=== PATIENT | female | born 1970 | race Caucasian/White ===

== ENCOUNTER → 2023-10-27 14:09 | Outpatient (REF) | payer BC, SELFPAY | LOC: RAD 14:09 | PROVIDERS: ATTENDING PHYSICIAN Family Medicine | DX: R05.3 Chronic cough (principal); F41.9 Anxiety disorder, unspecified; J30.9 Allergic rhinitis, unspecified; R09.81 Nasal congestion | CPT/HCPCS: 71046 ==

== ENCOUNTER → 2024-05-12 13:07 | Outpatient (REF) | payer BC, SELFPAY | LOC: HWRAD 13:07 | PROVIDERS: ATTENDING PHYSICIAN Family Medicine | DX: M79.672 Pain in left foot (principal); M79.675 Pain in left toe(s); I73.00 Raynaud's syndrome without gangrene | CPT/HCPCS: 73630 ==

== ENCOUNTER → 2024-07-29 07:25 | Outpatient (REF) | payer BC, SELFPAY | LOC: RCS 07:25 | PROVIDERS: ATTENDING PHYSICIAN Internal Medicine Cardiovascular Disease; FAMILY PHYSICIAN Family Medicine | DX: R06.02 Shortness of breath (principal) | CPT/HCPCS: 93306 ==

== ENCOUNTER → 2024-08-05 06:54 | Outpatient (REF) | payer BC, SELFPAY | LOC: RAD 06:54 | PROVIDERS: ATTENDING PHYSICIAN Internal Medicine Cardiovascular Disease; FAMILY PHYSICIAN Family Medicine | DX: I73.00 Raynaud's syndrome without gangrene (principal) | CPT/HCPCS: 93922; 93925 ==

== ENCOUNTER 2024-11-24 23:41 | Emergency (ER) | payer BC, SELFPAY ==
[2024-11-24 23:49] VITALS: BP 119/73
[2024-11-25 00:26] VITALS: BMI 21.2
[2024-11-25 00:29] VITALS: BP 111/63
[2024-11-25 00:58] LABS: HCG, Serum Qualitative Screen Negative
[2024-11-25] MEDS: NSS 1000 IV (01:00)
[2024-11-25 01:01] LABS: Urine Character Cloudy (Clear)
[2024-11-25 01:04] VITALS: BP 111/66
[2024-11-25 01:10] LABS: ALT (SGPT) 18 U/L (0-35); AST (SGOT) 21 U/L (14-36); Albumin 4.5 g/dl (3.5-5.0); Alkaline Phosphatase 77 U/L (38-126); Blood Urea Nitrogen 14 mg/dl (7-17); Calcium 9.1 mg/dl (8.4-10.2); Carbon Dioxide 28 mmol/L (22-30); Chloride 103 mmol/L (98-107); Estimated Creatinine Clearance 82 ml/min; Glucose 96 mg/dl (70-99); Potassium 3.9 mmol/L (3.5-5.1); Sodium 137 mmol/L (135-145); Total Protein 7.5 g/dl (6.3-8.2); eGFR > 60.00
[2024-11-25 01:16] LABS: Hematocrit 39.7 % (37.0-47.0); Hemoglobin 13.0 g/dL (12.0-16.0); Mean Corp Hgb Conc. 32.7 g/dL (33.0-37.0); Mean Corpuscular Volume 94.7 fL (81.0-99.0); Nucleated Red Blood Cells % 0 %; Platelet Count 251 10^3/uL (130-400); Red Cell Dist. Width 12.3 % (11.5-14.5)
[2024-11-25 01:44] LABS: Urine Squamous Cell >30 /LPF (Few)
--- NOTE | 2024-11-25 01:45 | ED.GENMED ---
History of Present Illness
General
Chief Complaint: Urinary Symptoms
Time Seen by Provider: 11/25/24 00:00
History of Present Illness
History of Present Illness:
see MDM
Past History
Past History
ED Past Medical History: Other (Scoliosis treated nonoperatively)
ED Past Surgical History: None
Social History
Tobacco: Non-smoker
Alcohol: Occasional
Drug: None
Living: with family
Family History
Family History: Other (Father had a coronary stent)
Phy Exam
Physical Exam
Physical Exam:
GENERAL: Alert , in no apparent distress
EYE: pupils equal and reactive
NECK: Supple
ENT: o/p clr, mmm.
CARDIAC: Regular rate and rhythm .
LUNGS: Clear breath sounds bilaterally, no acute respiratory distress, no wheezes/rales/rhonchi
ABDOMEN: Soft, mild suprapubic tenderness no r/g, no cvat, normal bowel sounds
No back pain, no tenderness
NEUROLOGICAL: Alert and oriented, no focal neuro deficits
SKIN: Warm and dry, skin intact.
MUSCULOSKELETAL: No edema, well perfused. neg bryan's sign
PSYCH: Normal and appropriate interaction.
Course
Orders/Labs/Results
Orders:
Orders
11/25/24 00:28
0.9% Sodium Chloride 1000 ml [Nss] 1,000 ml IV BOLUS
11/25/24 00:29
CT Abd/pel Without Iv Or Oral Urgent
Comment:
Reason For Exam: severe pain, hematuria
Bladder Scan- Treatment ONCE
Test Result ONCE
11/25/24 00:40
Complete Blood Count/With Diff Urgent
Comprehensive Metabolic Panel Urgent
HCG, Serum Qualitative Screen Urgent
Urinalysis Reflex To Culture Urgent
Date Specimen was Collected: 11/25/24
Time Specimen was Collected: 00:25
Urine Microscopic Reflex Cult Urgent
Urine Culture Urgent
MATT Source: U
Specimen Description:
Date Specimen was Collected: 11/25/24
Time Specimen was Collected: 00:25
11/25/24 02:00
Sulfamethox./Trimethoprim Ds [Bactrim Ds 800 mg/160 mg] 1 tablet PO NOW STA
Abnormal Lab Results
11/25/24
00:40
RBC 4.19 L 10^6/uL
(4.20-5.40)
MCHC 32.7 L g/dL
(33.0-37.0)
Absolute Monos (auto) 0.7 H 10^3/uL
(0.1-0.6)
Ur Occult Blood Reflex 4+ A
(Negative)
Leukocyte Esterase Rfl 3+ A
(Negative)
Urine RBC 21-25 A /HPF
(0-2)
Urine WBC (Reflex) 60-70 A /HPF
(0-5)
Urine Bacteria (Reflex) Moderate A
(Negative)
Urine Albumin (Reflex) 3+ A
(Neg - Trace)
11/25/24 00:40
11/25/24 00:40
Vital Signs
Initial and Last Documented VS:
Initial Vital Signs
Temp Pulse BP Pulse Ox
36.4 C 71 119/73 100
11/24/24 23:49 11/24/24 23:49 11/24/24 23:49 11/24/24 23:49
Last Documented Vital Signs
Temp Pulse Resp BP Pulse Ox
36.4 C 85 19 115/72 99
11/24/24 23:49 11/25/24 02:08 11/25/24 02:00 11/25/24 02:08 11/25/24 02:14
MDM/Problems Addressed
MDM/Problems Addressed:
Note:
CHIEF COMPLAINT(S)
Hematuria and urinary urgency.
HISTORY OF PRESENT ILLNESS
The patient is a 54-year-old female who presented with a history of postmenopausal symptoms, currently experiencing urinary symptoms characteristic of a urinary tract infection (UTI). Today, she began experiencing severe urinary urgency accompanied
by hematuria. The patient describes the sensation as painful and similar to the feeling of needing to urinate but being unable to do so effectively. The hematuria was not associated with any cloudiness in the urine but appeared as thin blood. She
denies any nausea or vomiting. The patient has experienced UTIs previously but cannot recall experiencing hematuria to this extent before. There is no history of kidney stones, and she has not recently experienced flank pain typically associated
with nephrolithiasis. Constipation, which has been linked to her menopausal symptoms in the past, was not present today.
PAST MEDICAL AND SURGICAL HISTORY
The patient has a history of menopausal symptoms, which are being managed with hormone replacement therapy.
MEDICATIONS
The patient is currently on hormone replacement therapy with estradiol and progesterone. She uses the estradiol patch, which is changed once a week, and is also taking a 5 mg dose of progesterone. Additionally, the patient is taking some unspecified
supplements.
PHYSICAL EXAM
- Abdomen: Tenderness noted upon light touch suprapubic, but not painful upon deeper palpation.
- Nursing notes reviewed and vital signs reviewed.
PROBLEM LIST
- Acute: Hematuria, Urinary Tract Infection symptoms (urgency, dysuria), Abdominal tenderness.
- Chronic: Menopausal symptoms managed with hormone therapy.
PLAN
- The patient will provide a urine sample for urinalysis to assess for urinary tract infection or underlying pathology.
- Consideration for a non-contrast computed tomography scan of the abdomen to rule out nephrolithiasis, given the severe symptoms.
- Initiate appropriate antibiotic therapy to manage the presumed urinary tract infection based on the results of the urinalysis.
DIFFERENTIAL DIAGNOSIS
The Differential Diagnosis includes, in no particular order and is not limited to:
1. Urinary Tract Infection
2. Nephrolithiasis
3. Bladder infection
4. Interstitial cystitis
5. Urethral syndrome
6. Pyelonephritis
7. Postmenopausal vaginal atrophy
8. Hemorrhagic cystitis
9. Acute cystitis
10. Vaginitis
CARE-UPDATE
11/25/24 - 01:58
Patient diagnosed with a bladder infection, no kidney stone present. Bloodwork is normal. Initiated on Bactrim DS, two times a day for seven days. Patient educated on returning if experiencing fever, chills, vomiting, or back pain, as these could
indicate kidney involvement. Advised to increase water intake to assist in flushing the infection. Pending urine culture to refine antibiotic treatment if necessary.
*Pulse Oximetry
SaO2: 100
Oxygen Mode of Delivery: Room air
Patient hypoxic: no (100)
*Critical Care Note
Total Time (30-74mins, 75-104mins- exclusive of procedures): Not Applicable
ED Attending Note
-
Portions of this chart may have been created with voice recognition software.� Occasional wrong word or��sound alike� substitutions may have occurred due to the inherent limitations of voice recognition software.
Discharge Plan
Departure
Patient Disposition: Home (Routine Discharge)
Date of Disposition: 11/25/24
Time of Disposition: 02:01
Patient with high blood pressure during this ER visit?: No
Condition: Fair
Covid-19: Not Applicable
Discharge Problem:
Acute hemorrhagic cystitis
Instructions: Urinary Tract Infection, Adult (DC)
Prescriptions:
New
sulfamethoxazole-trimethoprim [Bactrim DS] 800-160 mg tablet
1 tab PO BID Qty: 14 0RF
No Action
omeprazole 20 MG capsule,delayed release(DR/EC)
20 mg PO
multivitamin with folic acid [Tab-A-Bereket] 1 TABLET tablet
1 tab PO DAILY
famotidine 40 MG tablet
40 mg PO BID Qty: 0 0RF
Referrals:
Leroy Foster MD [Family Provider, Family Practice] - Follow up in 2-3 days
Activity Restrictions/Additional Instructions:
YOUR SYMPTOMS ARE DUE TO AN INFECTION IN YOUR BLADDER
DRINK PLENTY OF FLUIDS
USE THE ANTIBIOTICS AND TAKE UNTIL COMPLETION
FOLLOW UP WITH YOUR DOCTOR
RETURN FOR: FEVER, VOMITING, BACK PAIN, INABILITY TO URINATE [facility].
Interventions
Interventions:
*Risk Screen - Suicide Last Done: 11/24/24 23:46
*General Assessment Last Done: 11/25/24 00:32
*Neglect/Abuse Screening Last Done: 11/24/24 23:46
*ED- Fall Risk Assessment Last Done: 11/24/24 23:46
*ED COVID-19 Vaccine History Last Done: 11/24/24 23:46
*Nursing Disposition Last Done: 11/25/24 02:14
ED-Female Genitourinary Assessment Last Done: 11/25/24 00:45
Discharge Date and Time
Discharge Date/Time: 11/25/24 02:18
Print Language: NEPALI
[2024-11-25 01:46] LABS: Urine Red Blood Cell 21-25 /HPF (0-2); Urine White Cell 60-70 /HPF (0-5)
[2024-11-25] MEDS: BACTRIM DS 800 MG/160 MG 1 TABLET PO (02:07)
[2024-11-25 02:08] VITALS: BP 115/72
== END 2024-11-25 02:18 | disposition home or self-care (01) ==
LOC: EMR 23:41
PROVIDERS: Physician Assistant; EMERGENCY PHYSICIAN Student in an Organized Health Care Education/Training Program; FAMILY PHYSICIAN Family Medicine
DX: N30.01 Acute cystitis with hematuria (principal); Z79.890 Hormone replacement therapy
CPT/HCPCS: 96360; 99284; 74176; 80053; 81003; 81015; 84703; 85025; 87086

== ENCOUNTER → 2025-03-09 10:03 | Outpatient (REF) | payer BC, SELFPAY | LOC: RAD 10:03 | PROVIDERS: ATTENDING PHYSICIAN Internal Medicine Rheumatology; FAMILY PHYSICIAN Family Medicine | DX: M81.0 Age-related osteoporosis without current pathological fracture (principal) | CPT/HCPCS: 77080 ==

== ENCOUNTER → 2025-03-21 07:57 | Outpatient (REF) | payer BC, SELFPAY | LOC: HWRAD 07:57 | PROVIDERS: ATTENDING PHYSICIAN Student in an Organized Health Care Education/Training Program; FAMILY PHYSICIAN Family Medicine | DX: N95.0 Postmenopausal bleeding (principal) | CPT/HCPCS: 76830; 76856 ==